=== PATIENT | male | born 1965 | race Caucasian/White ===

== ENCOUNTER → 2019-06-17 | Outpatient (CLI) | payer OTHER | LOC: CAT 08:16 → EDBD 08:16 | DX: Z13.6 Encounter for screening for cardiovascular disorders (principal); I25.10 Atherosclerotic heart disease of native coronary artery without angina pectoris; E78.00 Pure hypercholesterolemia, unspecified ==

== ENCOUNTER → 2019-07-09 | Outpatient (CLI) | payer OTHER | LOC: SJCVCIMAG 14:30 | DX: I08.1 Rheumatic disorders of both mitral and tricuspid valves (principal); I77.819 Aortic ectasia, unspecified site; I11.9 Hypertensive heart disease without heart failure; E78.5 Hyperlipidemia, unspecified ==

== ENCOUNTER → 2020-01-07 | Outpatient (CLI) | payer OTHER | LOC: SJCVCIMAG 08:00 | PROVIDERS: ATTEND Internal Medicine | DX: I10 Essential (primary) hypertension (principal); I71.2 Thoracic aortic aneurysm, without rupture; G47.33 Obstructive sleep apnea (adult) (pediatric); E78.2 Mixed hyperlipidemia; Z79.899 Other long term (current) drug therapy; Z87.891 Personal history of nicotine dependence ==

== ENCOUNTER → 2021-01-10 | Outpatient (CLI) | payer OTHER | LOC: SJCVCIMAG 09:45 | PROVIDERS: ATTEND Internal Medicine | DX: I71.2 Thoracic aortic aneurysm, without rupture (principal); R00.2 Palpitations; G47.33 Obstructive sleep apnea (adult) (pediatric) ==